=== PATIENT | female | born 1965 | race Caucasian/White ===

== ENCOUNTER 2018-05-18 16:21 | Emergency (ER) | payer MEDICARE ==
[~2018-05-18] VITALS: Ht 157.5 cm; Wt 64.9 kg
[~2018-05-18 16:21] MED LIST: ACETYL L-CARNI500 MG PO; ATENOLOL 25 MG25 M1 PO; BETASERON0.3 MG/SY1; CHANTIX1 MG PO; COCONUT OIL1000 MG PO; DARVOCET A5001 EAC1 PO; DIFLUCAN150 MG PO; DOXYCYCLINE 10100 M1 PO; FIORICET 50-321 EACH; FIORICET 50-321 EACH PO; FISH OIL 1,4001 EACH PO; FLEXERIL PO; GILENYA0.5 MG PO; HYALURONIC ACID; HYDROCODON-ACE1 EAC7 PO; HYDROXYZINE HCL25 M1; HYDROXYZINE HCL25 M1 PO; IBUPROFEN 800800 M1; JUICE PLUS VITAMINS; LEVAQUIN 500 M500 MG PO; MEDROLDOSEPACK PO; MIRAPEX0.25 MG PO; MOBIC15 MG PO; NEURONTIN 300M300 M2 PO; NORCO 5-325 TA1 EACH PO; NYSTATIN 1100000 U/M BUCCAL; OMEPRAZOLE 20 M20 M1 PO; ONDANSETRON HCL4 M2 PO; OXYBUTYNIN 5 MG5 M1 PO; OXYBUTYNIN CHLO10 MG; OXYELITE PRO; PHENERGAN25 MG RE; PREDNISONE 1 MG1 M1 PO; PREDNISONE50 MG PO; PRISTIQ100 MG; PROAIR HFA8.5 GM IH; PROMETHAZINE-C120 ML PO; PROVIGIL; PROZAC 20 MG20 MG PO; REQUIP; REQUIP0.5 MG PO; TIZANIDINE HCL4 M1 PO; TRAMADOL 50 MG50 MG PO; TRAZODONE 150150 M1 PO; ULTRACET TABLET1 TAB PO; VALIUM5 MG PO; VENTOLIN17 GM INH; ZANAFLEX4 M1 PO; ZOFRAN 4 MG ORAL4 M1 DIS; ZOFRAN4 MG PO; ZPAK PO; [UNRECOGNIZED DRUG - OTHER]
[2018-05-18 16:54] LABS: ABSOLUTE BASOPHILS 0.1 thou/uL (0.0-0.2); ABSOLUTE EOSINOPHILS 0.1 thou/uL (0.0-0.7); ABSOLUTE LYMPHOCYTES 2.2 thou/uL (0.8-5.3); ABSOLUTE MONOCYTES 0.6 thou/uL (0.0-1.2); ABSOLUTE NEUTROPHILS 5.5 thou/uL (1.6-8.1); BASOPHILS 1.2 %; EOSINOPHILS 1.4 %; HEMATOCRIT 36.6 % (37.0-47.0); HEMOGLOBIN 12.2 gm/dL (12.0-15.0); LYMPHOCYTES 25.6 %; MCH 30.6 pg (26.0-34.0); MCHC 33.4 g/dL (28.0-37.0); MCV 91.5 fL (80.0-100.0); MONOCYTES 7.2 %; MPV 8.5 fl. (7.2-11.1); NUCLEATED RBCS 0 /100WBC; PLATELET COUNT* 214 thou/uL (150-400); POLYS 64.6 %; RDW-CV 13.3 % (10.5-14.5); WBC 8.5 thou/uL (4.0-11.0)
[2018-05-18 17:01] LABS: ANION GAP 6 mmol/L (7-16); BUN 8 mg/dL (7-18); CALCIUM 8.7 mg/dL (8.5-10.1); CHLORIDE 104 mmol/L (98-107); CO2 30 mmol/L (21-32); CREATININE 0.8 mg/dL (0.6-1.3); GLUCOSE 79 mg/dL (70-99); POTASSIUM 3.7 mmol/L (3.5-5.1); SODIUM 140 mmol/L (136-145)
[2018-05-18 17:02] LABS: URINE BILIRUBIN NEGATIVE (Negative); URINE BLOOD NEGATIVE (Negative); URINE CLARITY CLEAR; URINE COLOR YELLOW; URINE GLUCOSE-RANDOM NEGATIVE (Negative); URINE KETONES NEGATIVE (Negative); URINE LEUKOCYTES-REFLEX TRACE (Negative); URINE NITRITE-REFLEX NEGATIVE (Negative); URINE PROTEIN NEGATIVE (Negative); URINE SPECIFIC GRAVITY <= 1.005 (1.005-1.030); URINE UROBILINOGEN 0.2 E.U./dl (0.2-1.0)
[2018-05-18 17:09] LABS: SQUAMOUS 4-10 Moderate /LPF (0-3)
[2018-05-18 17:10] LABS: BACTERIA-REFLEX None Seen /HPF (None Seen); CASTS None Seen /LPF (None Seen); CRYSTALS None Seen /LPF (None Seen); URINE RBC None Seen /HPF (0-2); URINE WBC-REFLEX 0-5 Rare /HPF (0-5)
[2018-05-18 17:11] LABS: ALBUMIN 3.7 g/dL (3.4-5.0); ALKALINE PHOSPHATASE 77 U/L (46-116); SGOT 14 U/L (15-37); SGPT 14 U/L (30-65); TOTAL BILIRUBIN 0.4 mg/dL (<0.1-1.0); TOTAL PROTEIN 6.9 g/dL (6.4-8.2); TROPONIN-I LEVEL <0.06 ng/mL (<0.06)
[2018-05-18] MEDS ORDERED: BACTRIM DS TAB1 EACH PO (17:48)
[2018-05-18 19:23] VITALS: BP 115/71
--- NOTE | 2018-05-19 10:17 | EKG ---
[place] [address] ELECTROCARDIOGRAM REPORT Name: CLARA DELGADILLO [id number] Admission: 05/18/18 Attend Phys: Discharge: 05/18/18 Date of : 69 Report #: [id number] THIS REPORT FOR: //name// [facility] ED Test Date: 2018-05-18 Test Time: 16:32:30 Pat Name: CLARA DELGADILLO Department: Room: Gender: F Tissue Technician: Ana M PICKERING : 1965 Requested By: Mick Joseph Order Number: [id number] MD: Que New Measurements Intervals [place] Rate: 78 P: 56 W[place]: 172 QRS: -4 QRSD: 88 T: -3 QT: 402 QTc: 458 Interpretive Statements Sinus rhythm nonspecific st changes Compared to ECG 10/18/2015 04:22:18 Incomplete right bundle-branch block no longer present Electronically Signed On 05-19-2018 10:17:04 CDT by Que New [email or web address] <ELECTRONICALLY SIGNED> By: Que New MD, [facility] 05/19/18 1017 31 31 Que New MD, FACC /EPI
== END 2018-05-18 19:23 | disposition home or self-care (01) ==
LOC: M.ERS 16:21
PROVIDERS: Emergency Medicine Emergency Medical Services
DX: N39.0 Urinary tract infection, site not specified (principal); G43.909 Migraine, unspecified, not intractable, without status migrainosus; F32.9 Major depressive disorder, single episode, unspecified; Z90.710 Acquired absence of both cervix and uterus; Z98.51 Tubal ligation status; Z88.0 Allergy status to penicillin; Z88.1 Allergy status to other antibiotic agents; Z88.5 Allergy status to narcotic agent

== ENCOUNTER → 2019-05-28 | Outpatient (CLI) | payer MEDICARE ==
[~2019-05-28] MED LIST changes: +BACTRIM DS TAB1 EACH PO
== END ==
LOC: M.LAB 08:28
DX: E55.9 Vitamin D deficiency, unspecified (principal)

== ENCOUNTER 2020-03-05 19:33 | Emergency (ER) | payer MEDICARE ==
[~2020-03-05] VITALS: Ht 157.5 cm; Wt 62.6 kg
[2020-03-05] MEDS ORDERED: TOPAMAX100 MG PO (19:53)
[2020-03-05] MEDS ORDERED: ONDANSETRON ODT4 MG PO (20:29)
[2020-03-05] MEDS ORDERED: BUTALB-APAP-CA1 EACH PO (20:29)
[2020-03-05 20:45] VITALS: BP 138/79
== END 2020-03-05 20:45 | disposition home or self-care (01) ==
LOC: M.ERS 19:33
DX: G43.909 Migraine, unspecified, not intractable, without status migrainosus (principal); G35 Multiple sclerosis; R11.2 Nausea with vomiting, unspecified; Z88.0 Allergy status to penicillin; Z88.1 Allergy status to other antibiotic agents; Z88.5 Allergy status to narcotic agent; Z90.710 Acquired absence of both cervix and uterus; Z90.89 Acquired absence of other organs; Z98.51 Tubal ligation status

== ENCOUNTER → 2020-10-10 | Outpatient (CLI) | payer MEDICARE ==
[~2020-10-10] MED LIST changes: +BUTALB-APAP-CA1 EACH PO; +ONDANSETRON ODT4 MG PO; +TOPAMAX100 MG PO
[2020-10-10 13:29] LABS: ALBUMIN 4.2 g/dL (3.4-5.0); CALCIUM 9.2 mg/dL (8.5-10.1); CREATININE 0.9 mg/dL (0.6-1.3); MAGNESIUM 2.5 mg/dL (1.8-2.4); POTASSIUM 4.4 mmol/L (3.5-5.1); TOTAL BILIRUBIN 0.8 mg/dL (<0.1-1.0); TOTAL PROTEIN 7.6 g/dL (6.4-8.2)
[2020-10-11 19:07] LABS: ANA INTERPRETATION Positive (Negative); ANTI-SSA <0.2 AI (0.0-0.9)
== END ==
LOC: M.MRI 09-05 15:55 → M.LAB 09-19 10:30 → M.MRI 09-19 11:30 → M.LAB 12:30 → M.MRI 13:30
PROVIDERS: ATTEND Psychiatry & Neurology Neuromuscular Medicine
DX: G35 Multiple sclerosis (principal); M62.9 Disorder of muscle, unspecified

== ENCOUNTER 2020-10-17 08:33 | Emergency (ER) | payer MEDICARE ==
[~2020-10-17] VITALS: Ht 157.5 cm; Wt 55.8 kg
[2020-10-17] MEDS ORDERED: HYDROCODON-ACE1 EAC7 PO (09:14)
[2020-10-17] MEDS ORDERED: FLEXERIL PO (09:14)
[2020-10-17 09:20] VITALS: BP 111/83
== END 2020-10-17 09:20 | disposition home or self-care (01) ==
LOC: M.ERS 08:33
DX: M54.5 Low back pain (principal); G43.909 Migraine, unspecified, not intractable, without status migrainosus; Z88.0 Allergy status to penicillin; Z88.1 Allergy status to other antibiotic agents; Z90.710 Acquired absence of both cervix and uterus; Z90.89 Acquired absence of other organs; Z98.51 Tubal ligation status

== ENCOUNTER → 2021-03-09 | Outpatient (CLI) | payer MEDICARE | LOC: M.RAD 09:08 → M.ULTRA 10:00 | PROVIDERS: ATTEND Nurse Practitioner Family | DX: R92.2 Inconclusive mammogram (principal); N63.20 Unspecified lump in the left breast, unspecified quadrant; N63.10 Unspecified lump in the right breast, unspecified quadrant ==